=== PATIENT | female | born 1955 | race Asian ===

== ENCOUNTER 2019-08-16 02:35 | Emergency (ER) | payer MEDICAID ==
[~2019-08-16] VITALS: Ht 154.9 cm; Wt 61.4 kg
[2019-08-16] MEDS ORDERED: LISI-662 PO (02:39)
[2019-08-16] MEDS ORDERED: METF-445 PO (02:39)
[2019-08-16] MEDS ORDERED: ATOR20TA86 PO (02:39)
[2019-08-16] MEDS ORDERED: MUPIROCIN CALCIUM 2% 22 GM OINTMENT TP ONE (06:45)
[2019-08-16] MEDS ORDERED: BACITRACIN 0.9 GM PACKET OINTMENT TP ONE (08:00)
[2019-08-16] MEDS ORDERED: LISINOPRIL 10 MG TABLET PO ONE (08:30)
[2019-08-16 09:20] VITALS: BP 148/92
== END 2019-08-16 10:00 | disposition home or self-care (01) ==
LOC: EMS 02:37
DX: R04.0 Epistaxis (principal); E11.9 Type 2 diabetes mellitus without complications; E78.00 Pure hypercholesterolemia, unspecified; I10 Essential (primary) hypertension; Z79.84 Long term (current) use of oral hypoglycemic drugs; Z79.899 Other long term (current) drug therapy
CPT/HCPCS: 30901

== ENCOUNTER 2019-08-19 11:54 | Emergency (ER) | payer MEDICAID ==
[~2019-08-19] VITALS: Ht 154.9 cm; Wt 63.6 kg
[~2019-08-19 11:54] MED LIST: ATOR20TA86 PO; LISI-662 PO; METF-445 PO
[2019-08-19 12:13] LABS: GLUCOSE,POINT OF CARE 202 MG/DL (70-110)
[2019-08-19 14:13] VITALS: BP 141/84
== END 2019-08-19 14:34 | disposition home or self-care (01) ==
LOC: EMS 11:56
DX: I10 Essential (primary) hypertension (principal); E11.9 Type 2 diabetes mellitus without complications; E78.00 Pure hypercholesterolemia, unspecified; Z48.00 Encounter for change or removal of nonsurgical wound dressing; Z79.84 Long term (current) use of oral hypoglycemic drugs; Z79.899 Other long term (current) drug therapy